=== PATIENT | male | born 1990 | race Caucasian/White ===

== ENCOUNTER → 2021-02-04 | Outpatient (CLI) | payer BC, OTHER ==
--- NOTE | 2021-02-04 17:41 | CONS ---
CONSULTATION DATE OF SERVICE: 02/04/2021 30-year-old gentleman has been evaluated in [facility] for possible obstructive sleep apnea-hypopnea syndrome. HISTORY OF PRESENT ILLNESS/SLEEP WAKE EVALUATION: SLEEP SCHEDULE: Patient's usual sleep schedule from 10 to 12 midnight until 6:30 a.m. on weekdays and from 11 or 12 midnight until 8 9:00 am on weekends. FALLING ASLEEP: No problems with falling asleep. No TV in bedroom. DURING SLEEP: Usually sleeps on the side position. He has snoring and he has episodes of gasping for air during the night. DURING THE DAY/SLEEP WAKE EVALUATION: In the morning, the patient wakes up tired, worries about his sleep. Perry Sleepiness Scale increased to 12. PAST MEDICAL HISTORY: Positive for diabetes mellitus, hypertension. PAST SURGICAL HISTORY: Vasectomy, surgery for hydrocele. MEDICATIONS: Metformin once a day, lisinopril once a day. The patient does not remember the dosage of medications. SOCIAL HISTORY: Positive for smoking about half pack a day for 7 years. Alcohol consumption occasional. FAMILY HISTORY: Heart problems, stroke, snoring, mental illness. REVIEW OF SYSTEMS: Snoring, sleepiness during the day. PHYSICAL EXAMINATION: GENERAL: A gentleman without distress. BP 145/69, HR 98, RR 16, height 5 feet 10 inches, weight 294, body mass index 42.3, temperature 98.1, oxygen saturation at room air 97%. Oropharynx low position of soft palate, Mallampati 3-4. NECK is wide 18-1/2 inches in circumference. Neck: Supple, no JVD. Thyroid is not palpable. LUNGS: Clear to percussion and to auscultation. Good air exchange. No wheezing or rhonchi. HEART: S1, S2 regular. No murmurs, gallops, or rubs. ABDOMEN: Obese. Soft and nontender. Bowel sounds are present. No organomegaly appreciated. EXTREMITIES: No clubbing or cyanosis. EMBLEM DRAWER IN: Awake, alert, and oriented X3. Cranial nerves 2 to 7 intact. There is no fasciculation or atrophy. noted. No focal deficits observed. IMPRESSION: 1. Snoring awake, episodes of gasping for air during sleep low position of soft palate, Mallampati 3-4, wide neck 18-1/2 inches in circumference, sleepiness Perry Sleepiness Scale increased to 12, obstructive sleep apnea-hypopnea syndrome. 2. Obesity, BMI 42.3. 3. Hypertension. 4. Diabetes mellitus. 5. Status post vasectomy. 6. Status post hydrocele surgical treatment. PLAN: 1. Home sleep apnea test for evaluation of patient breathing during sleep. 2. CPAP/BiPAP titration if sleep study confirms obstructive sleep apnea-hypopnea syndrome. 3. Preferable position during sleep on the side. 4. No driving if patient feels any sleepiness. 5. I will see patient for follow up visit to explain results of testing and following plan. Thank you very much for referring this patient for consultation. Sincerely, Donal Dc MD, PhD, FAASM Diplomat of [place] [employer] Sleep Medicine Board of [place] [employer] Asbestos Abatement Worker of [facility] [place] [email or web address] / JACKIE: [id number] /
== END ==
LOC: SLEEP 15:05
PROVIDERS: ATTEND Internal Medicine
DX: G47.33 Obstructive sleep apnea (adult) (pediatric) (principal); E66.9 Obesity, unspecified; I10 Essential (primary) hypertension; F17.210 Nicotine dependence, cigarettes, uncomplicated; E11.9 Type 2 diabetes mellitus without complications; Z79.84 Long term (current) use of oral hypoglycemic drugs; Z98.52 Vasectomy status; Z98.890 Other specified postprocedural states; Z79.899 Other long term (current) drug therapy; Z88.1 Allergy status to other antibiotic agents; Z68.41 Body mass index [BMI] 40.0-44.9, adult; Z88.6 Allergy status to analgesic agent
CPT/HCPCS: 99202

== ENCOUNTER → 2022-01-27 | Outpatient (CLI) | payer BC ==
--- NOTE | 2022-01-27 11:28 | P.PN ---
Subjective DATE: 01/27/2022 FOLLOW UP VISIT. Patient with obstructive sleep apnea hypopnea syndrome return to sleep center for follow-up visit. Information from previous visit have been reviewed. Patient is using PAP equipment every night for the whole night, getting PAP supplies in time. The patient does not have significant problems with the mask, PAP unit and humidification. [place] sleepiness scale is 9. I checked information from PAP unit. PAP unit pressure 5-10 average 9.7 cm H2O. Usage is 70 % for more then 4 hours, average 5-1/2 hours per night. Leak is 26.6 l/m, which is in acceptable range. Apnea Hypopnea Index is 1.5, which is normal. MEDICATIONS:1. Metformin 2. Lisinopril During physical exam: GENERAL: A pleasant patient without any distress. VITAL SIGNS: BP 128/79, HR 87, RR 16 , weight 291.4, temperature 96.9, oxygen saturation at room air 98 % . HEENT: PERRLA, EOMI.low position of soft palate, Mallapati 3-4 . NECK: Supple. No JVD. LUNGS: Clear to percussion and to auscultation. Good air exchange. No wheezing or rhonchi. HEART: S1, S2 regular. ABDOMEN: Soft and nontender. Obese EXTREMITIES: No clubbing or cyanosis. BUS ESCORT: Awake, alert, and oriented x3. No focal deficit. Impressions: 1. Obstructive sleep apnea-hypopnea syndrome. Patient demonstrated great compliance with treatment, benefiting from treatment. 2. Obesity. Patient increased his weight and 5 pounds. 3. Hypertension. 4. Diabetes mellitus. 5. Status post vasectomy. Plan: 1. Continue using PAP equipment every night for the whole night. I changed pressure in the CPAP unit up to the level 5-12 cm of water. 2. To change air filter at least 1-2 times per month. 3. PAP unit should stay lower then position of the head. 4. Advised patient to remove all remaining water from humidifier canister daily and make it dry after each usage. Refill canister with fresh distilled water before each usage. 5. Sleep hygiene with regular time in bed for at least 8 hours. 6. Precautions related to driving. No driving if feel any sleepiness. 7. I will maintain prescription for PAP supplies including mask, tube, filters. 8. Follow up visit in 6 months or earlier if patient has any problems. 9. Watching and losing weight. Thank you very much for allowing me to participate in the management of your patient. Donal Dc MD, PhD, FAASM. Diplomat of [place] [employer], Sleep Medicine Board by [place] [employer] Human Resources Representative of [facility] [place]
== END ==
LOC: SLEEP 10:35
PROVIDERS: ATTEND Internal Medicine
DX: G47.33 Obstructive sleep apnea (adult) (pediatric) (principal); E66.9 Obesity, unspecified; I10 Essential (primary) hypertension; E11.9 Type 2 diabetes mellitus without complications; Z98.52 Vasectomy status; Z99.89 Dependence on other enabling machines and devices; Z79.84 Long term (current) use of oral hypoglycemic drugs; Z79.899 Other long term (current) drug therapy; Z88.1 Allergy status to other antibiotic agents; Z88.6 Allergy status to analgesic agent; F17.200 Nicotine dependence, unspecified, uncomplicated
CPT/HCPCS: 99212

== ENCOUNTER → 2022-08-11 | Outpatient (CLI) | payer BC ==
--- NOTE | 2022-08-11 11:22 | P.PN ---
Subjective DATE: 12/11/2022 FOLLOW UP VISIT. Patient with obstructive sleep apnea hypopnea syndrome return to sleep center for follow-up visit. Information from previous visit have been reviewed. Patient is using PAP equipment every night for the whole night, getting PAP supplies in time. The patient does not have significant problems with the mask, PAP unit and humidification. [place] sleepiness scale is 7, which is normal. I checked information from PAP unit and discuss it with patient in details. PAP unit pressure 5-12, average 11.3 cm H2O. Usage is 80% and 70 % for more then 4 hours, average 5.25 hours per night. Leak is 26.6 l/m, which is in acceptable range. Apnea Hypopnea Index is 1.7, which is normal. MEDICATIONS:1. Metformin 2. Lisinopril During physical exam: GENERAL: A pleasant patient without any distress. VITAL SIGNS: BP 142/86, HR 97, RR 16 , weight 296.0, temperature 98.0, oxygen saturation at room air 98 % . HEENT: PERRLA, EOMI.low position of soft palate, Mallapati 3-4 . NECK: Supple. No JVD. LUNGS: Clear to percussion and to auscultation. Good air exchange. No wheezing or rhonchi. HEART: S1, S2 regular. ABDOMEN: Soft and nontender. Slightly obese EXTREMITIES: No clubbing or cyanosis. COMBINATION WELDER APPRENTICE: Awake, alert, and oriented x3. No focal deficit. Impressions: 1. Obstructive sleep apnea-hypopnea syndrome. Patient demonstrated borderline compliance with treatment, benefiting from treatment. 2. Obesity, patient again increase his weight on 5 pounds. 3. Diabetes mellitus. 4. Hypertension. 5. Status post vasectomy. Plan: 1. Continue using PAP equipment every night for the whole night with the same level of pressure. 2. To change air filter at least 1-2 times per month. 3. PAP unit should stay lower then position of the head. 4. Advised patient to remove all remaining water from humidifier canister daily and make it dry after each usage. Refill canister with fresh distilled water before each usage. 5. Sleep hygiene with regular time in bed for at least 8 hours. 6. Precautions related to driving. No driving if feel any sleepiness. 7. I will maintain prescription for PAP supplies including mask, tube, filters. 8. Watching and losing weight. 9. Follow up visit in 6 months or earlier if patient has any problems. Thank you very much for allowing me to participate in the management of your patient. Donal Dc MD, PhD, FAASM. Diplomat of [place] [employer], Sleep Medicine Board by [place] [employer] Spindle Setter of [facility] [place]
== END ==
LOC: SLEEP 10:57
PROVIDERS: ATTEND Internal Medicine
DX: G47.33 Obstructive sleep apnea (adult) (pediatric) (principal); E66.9 Obesity, unspecified; E11.9 Type 2 diabetes mellitus without complications; I10 Essential (primary) hypertension; Z99.89 Dependence on other enabling machines and devices; Z98.52 Vasectomy status; Z88.1 Allergy status to other antibiotic agents; Z88.6 Allergy status to analgesic agent; F17.210 Nicotine dependence, cigarettes, uncomplicated
CPT/HCPCS: 99212

== ENCOUNTER → 2023-03-30 | Outpatient (CLI) | payer BC ==
--- NOTE | 2023-03-30 12:38 | P.PN ---
Subjective DATE: 03/30/2023 FOLLOW UP VISIT. Patient with obstructive sleep apnea hypopnea syndrome return to sleep center for follow-up visit. Information from previous visit have been reviewed. Patient is using PAP equipment every night for the whole night, getting PAP supplies in time. Patient has problems with humidifier, humidifier does not work well in CPAP unit. Isabel sleepiness scale is 9, which is borderline. I checked information from PAP unit. PAP unit pressure 5-12, average 10.0 cm H2O. Usage is 90% and 47 % for more then 4 hours, average 4.5 hours per night. Leak is increased to 33.6 l/m. Apnea Hypopnea Index is 1.3, which is normal. I checked CPAP unit humidifier does not work well. I adjusted level of humidity up to the level of 7. MEDICATIONS:1. Albuterol 2. Lisinopril 10 mg once a day 3. Metformin 500 mg once a day During physical exam: GENERAL: A pleasant patient without any distress. VITAL SIGNS: BP 153/88, HR 72, RR 16 , weight 294.4, temperature 98.0, oxygen saturation at room air 97 % . HEENT: PERRLA, EOMI.low position of soft palate, Mallapati 3-4 . NECK: Supple. No JVD. LUNGS: Clear to percussion and to auscultation. Good air exchange. No wheezing or rhonchi. HEART: S1, S2 regular. ABDOMEN: Soft and nontender. Slightly obese EXTREMITIES: No clubbing or cyanosis. MANAGER DEVELOPMENTAL: Awake, alert, and oriented x3. No focal deficit. Impressions: 1. Obstructive sleep apnea-hypopnea syndrome. Patient demonstrated good compliance with treatment, benefiting from treatment. Humidifier in CPAP unit doesn't work well. 2. Obesity, patient lost 2 pounds since previous visit. 3. Hypertension. 4. Diabetes mellitus. 5. Status post was vasectomy. Plan: 1. Continue using PAP equipment every night for the whole night. Prescription to fix replace CPAP unit, because heated humidifier doesn't work well. 2. To change air filter at least 1-2 times per month. 3. PAP unit should stay lower then position of the head. 4. Advised patient to remove all remaining water from humidifier canister daily and make it dry after each usage. Refill canister with fresh distilled water before each usage. 5. Sleep hygiene with regular time in bed for at least 8 hours. 6. Precautions related to driving. No driving if feel any sleepiness. 7. I will maintain prescription for PAP supplies including mask, tube, filters. 8. Follow up visit in 6 months or earlier if patient has any problems. 9. Watching and losing weight. Thank you very much for allowing me to participate in the management of your patient. Donal Dc MD, PhD, FAASM. Diplomat of [place] [employer] Medicine, Sleep Medicine Board by [place] [employer] Warehouse Specialist of [facility] [place]
== END ==
LOC: 3 N SLEEP 11:32
PROVIDERS: ATTEND Internal Medicine
DX: G47.33 Obstructive sleep apnea (adult) (pediatric) (principal); E66.9 Obesity, unspecified; I10 Essential (primary) hypertension; E11.9 Type 2 diabetes mellitus without complications; F17.200 Nicotine dependence, unspecified, uncomplicated; Z79.84 Long term (current) use of oral hypoglycemic drugs; Z79.899 Other long term (current) drug therapy; Z98.52 Vasectomy status; Z99.89 Dependence on other enabling machines and devices; Z88.1 Allergy status to other antibiotic agents; Z88.6 Allergy status to analgesic agent
CPT/HCPCS: 99212

== ENCOUNTER → 2023-10-12 | Outpatient (CLI) | payer BC ==
[2023-10-12 12:45] VITALS: BP 147/83; PULSE 90; RESP 18; TEMP 98.4
--- NOTE | 2023-10-12 13:59 | P.PN ---
Subjective DATE: 10/12/2023 FOLLOW UP VISIT. Patient with obstructive sleep apnea hypopnea syndrome return to sleep center for follow-up visit. Information from previous visit have been reviewed. Patient is using PAP equipment every night for the whole night, getting PAP supplies in time. The patient does not have significant problems with the mask, PAP unit and humidification. [place] sleepiness scale is 10, which is borderline. I checked information from PAP unit. PAP unit pressure 5-12, average 11.4 cm H2O. Usage is 93% and 67% for more then 4 hours, average 5 hours per night. Leak is 26.4 l/m, which is in acceptable range. Apnea Hypopnea Index is 1.1, which is normal. Heated humidifier does not work well. MEDICATIONS:1. Lisinopril 10 mg once a day 2. Metformin 500 mg once a day 3. Albuterol as needed During physical exam: GENERAL: A pleasant patient without any distress. VITAL SIGNS: Please see below, weight 294.6 pounds. HEENT: PERRLA, EOMI.low position of soft palate, Mallapati 3-4 . NECK: Supple. No JVD. LUNGS: Clear to percussion and to auscultation. Good air exchange. No wheezing or rhonchi. HEART: S1, S2 regular. ABDOMEN: Soft and nontender. Obese EXTREMITIES: No clubbing or cyanosis. ASSOCIATE DIRECTOR REGULATORY AFFAIRS: Awake, alert, and oriented x3. No focal deficit. Impressions: 1. Obstructive sleep apnea-hypopnea syndrome. Patient demonstrated good compliance with treatment, benefiting from treatment. 2. Obesity, weight is the same comparing with the previous visit. 3. Hypertension. 4. Diabetes mellitus. 5. Status post vasectomy. Plan: 1. Continue using PAP equipment every night for the whole night. Prescription to fix or replace CPAP unit, because heated humidifier does not work well. 2. To change air filter at least 1-2 times per month. 3. PAP unit should stay lower then position of the head. 4. Advised patient to remove all remaining water from humidifier canister daily and make it dry after each usage. Refill canister with fresh distilled water before each usage. 5. Sleep hygiene with regular time in bed for at least 8 hours. 6. Precautions related to driving. No driving if feel any sleepiness. 7. I will maintain prescription for PAP supplies including mask, tube, filters. 8. Watching and losing weight. 9. Follow up visit in 6 months or earlier if patient has any problems. Thank you very much for allowing me to participate in the management of your patient. Donal Dc MD, PhD, FAASM. Diplomat of [place] [employer] Sleep Medicine, Sleep Medicine Board by [place] [employer] Automatic Folder Seamer of [facility] [place] Objective - Vital Signs Vital signs: Vital Signs Temp 98.4 F 10/12/23 12:11 Pulse 90 10/12/23 12:11 Resp 18 10/12/23 12:11 BP 147/83 10/12/23 12:11 Pulse Ox 97 10/12/23 12:11 FiO2 Intake & Output 10/11/23 10/12/23 10/12/23 18:59 06:59 18:59 Weight 133.526 kg
== END ==
LOC: 3 N SLEEP 11:39
PROVIDERS: ATTEND Internal Medicine
DX: G47.33 Obstructive sleep apnea (adult) (pediatric) (principal); E66.9 Obesity, unspecified; I10 Essential (primary) hypertension; E11.9 Type 2 diabetes mellitus without complications; F17.200 Nicotine dependence, unspecified, uncomplicated; Z98.52 Vasectomy status; Z99.89 Dependence on other enabling machines and devices; Z88.1 Allergy status to other antibiotic agents; Z88.5 Allergy status to narcotic agent
CPT/HCPCS: 99212

== ENCOUNTER → 2024-06-06 | Outpatient (CLI) | payer BC ==
[2024-06-06 11:05] VITALS: BP 142/91; PULSE 92; RESP 16; TEMP 98
--- NOTE | 2024-06-06 12:04 | P.PROGSL ---
Subjective DATE: 06/06/2024 FOLLOW UP VISIT. Patient with obstructive sleep apnea hypopnea syndrome return to sleep center for follow-up visit. Information from previous visit have been reviewed. Patient is using PAP equipment every night for the whole night, getting PAP supplies in time. The patient does not have significant problems with the mask, PAP unit and humidification. [place] sleepiness scale is slightly increased to 11. I checked information from PAP unit. PAP unit pressure 5-12, average 11.2 cm H2O. Usage is 80% for more then 4 hours, average 5.2 hours per night. Leak is 23 l/m, which is in acceptable range. Apnea Hypopnea Index is 1.4, which is normal. MEDICATIONS have been reviewed, please see below. During physical exam: GENERAL: A pleasant patient without any distress. VITAL SIGNS: Please see below, weight is 296 lbs. HEENT: PERRLA, EOMI.low position of soft palate, Mallapati 34. NECK: Supple. No JVD. LUNGS: Clear to percussion and to auscultation. Good air exchange. No wheezing or rhonchi. HEART: S1, S2 regular. ABDOMEN: Soft and nontender. Slightly obese EXTREMITIES: No clubbing or cyanosis. ROTATING FIELD ASSEMBLER: Awake, alert, and oriented x3. No focal deficit. Impressions: 1. Obstructive sleep apnea-hypopnea syndrome. Patient demonstrated good compliance with treatment, benefiting from treatment. 2. Obesity, BMI 43.0, weight is about the same as during previous visit. 3. Hypertension. 4. Diabetes mellitus. 5. Status post vasectomy. Plan: 1. Continue using PAP equipment every night for the whole night. 2. Sleep hygiene with regular time in bed for at least 7.5-8 hours 3. PAP unit should stay lower then position of the head. 4. Advised patient to remove all remaining water from humidifier canister daily and make it dry after each usage. Refill canister with fresh distilled water before each usage. 5. Watching and losing weight. 6. Precautions related to driving. No driving if feel any sleepiness. 7. I will maintain prescription for PAP supplies including mask, tube, filters. 8. Follow up visit in 8 months or earlier if patient has any problems. Thank you very much for allowing me to participate in the management of your patient. Donal Dc MD, PhD, FAASM. Diplomat of [place] [employer] Sleep Medicine, Sleep Medicine Board by [place] [employer] Supervisor Clam Bed of [facility] [place] Objective - Vital Signs Vital Signs: Vital Signs Temp 98 F 06/06/24 11:05 Pulse 92 06/06/24 11:05 Resp 16 06/06/24 11:05 BP 142/91 06/06/24 11:05 Pulse Ox 98 06/06/24 11:05 FiO2 Intake & Output 06/05/24 06/06/24 06/06/24 18:59 06:59 18:59 Weight 134.263 kg Home Medications: Home Medications Medication Instructions Recorded Confirmed Type Gelusil Antacid Tablets 1 tab PO DAILY PRN 04/08/16 04/08/16 History Omeprazole [PriLOSEC] 20 mg PO AC-BRKFST #30 cap 04/08/16 Rx Pseudoephedrine 12Hr [Sudafed 12Hr] 120 mg PO Q12H PRN 04/08/16 04/08/16 History Albuterol Inhaler [Ventolin Hfa 1 - 2 puff INHALATION Q6H PRN 06/06/24 06/06/24 History Inhaler] lisinopriL [Zestril] 10 mg PO DAILY 06/06/24 06/06/24 History metFORMIN HCL [Glucophage] 500 mg PO DAILY 06/06/24 06/06/24 History
== END ==
LOC: 3 N SLEEP 10:48
PROVIDERS: ATTEND Internal Medicine
DX: G47.33 Obstructive sleep apnea (adult) (pediatric) (principal); I10 Essential (primary) hypertension; E66.9 Obesity, unspecified; E11.9 Type 2 diabetes mellitus without complications; Z68.41 Body mass index [BMI] 40.0-44.9, adult; Z98.52 Vasectomy status; Z99.89 Dependence on other enabling machines and devices; Z88.1 Allergy status to other antibiotic agents; Z88.6 Allergy status to analgesic agent; Z79.84 Long term (current) use of oral hypoglycemic drugs; Z79.899 Other long term (current) drug therapy
CPT/HCPCS: 99212